=== PATIENT | male | born 1955 | race Caucasian/White ===

== ENCOUNTER 2025-09-15 13:48 | Emergency (ER) | payer MEDICARE, OTHER, SELFPAY ==
[2025-09-15 13:49] VITALS: BP 147/78; PULSE 88; RESP 18; TEMP 36.8; O2SAT 97; BMI 29.7
--- NOTE | 2025-09-15 14:28 | US_ITS ---
PROCEDURE: TESTICULAR WITH ARTERIAL FLOW 09/15/2025 REASON FOR EXAM: LEFT TESTICULAR PAIN, ERYTHEMA, SWELLING TECHNIQUE: Procedure Code: USTES Modality: US Procedure: TESTICULAR WITH ARTERIAL FLOW COMPARISON: Reviewed FINDINGS: No sonographic evidence of acute torsion bilaterally with preserved vascular flow bilaterally. Pathologically increased vascularity asymmetrically noted to the left testicle and epididymis which may reflect epididymo-orchitis. No suspicious masses seen. Moderate left hydrocele. No hydrocele or varicocele on the right. Right testicle measures 4.9 x 2.2 x 2.6 cm, left measures 4.5 x 3.6 x 3.4 cm. US/Testicular with Arterial Flow IMPRESSION: As above. Reading Location: [facility]
[2025-09-15 14:53] LABS: Hematocrit 46.1 % (40-54); Hemoglobin 15.9 g/dL (13.0-16.5); Immature Granulocytes Count 0.090 X10^3/uL (0.0-0.0); Mean Corp Hgb Conc 34.5 g/dL (32-36); Mean Corpuscular Volume 100.7 fL (80-94); Mean Platelet Vol. 10.8 fl (6.2-12.0); NRBC Flagged by Analyzer 0 % (0-5); POSITIVE DIFFERENTIAL YES; Platelet Count 174 K/mm3 (150-450); RBC Distribution Width CV 12.3 % (11.6-14.6); RBC Distribution Width SD 45.9 fl (35.1-43.9); Red Blood Count 4.58 M/mm3 (4.6-6.2); White Blood Count 15.0 K/mm3 (4.4-11.0)
[2025-09-15 14:54] LABS: Differential Indicated SCAN CRITERIA MET
[2025-09-15 15:05] LABS: Mucous, Urine 0 SEEN /hpf (<or=2+); Squamous Epithelial Cells - UA 0 SEEN /hpf (0-5)
[2025-09-15 15:06] LABS: Color, Urine Yellow (Yellow); Glucose, Dipstick Normal (Normal); Ketone-Dipstick 150 mg/dl (Negative); Leukocyte Esterase-Dipstick 500 /ul (Negative); Nitrite-Dipstick Positive (Negative); Occult Blood-Urine 150 /ul (Negative); Protein-Dipstick 30 mg/dl (Negative); Specific Gravity, Urine 1.020 (1.002-1.030); Urine Bilirubin Dipstick 1 mg/dL (Negative)
[2025-09-15 15:12] LABS: Red Blood Cells-Urine 0-5 SEEN /hpf (0-5)
--- NOTE | 2025-09-15 15:17 | EDS_ITS ---
HPI History of Present Illness Chief Complaint: Male Pain/Injury Informant: patient Pain Onset: Days (4) Timing: Continuous Appearance Lesion(s): No Genital Edema: Yes Narrative Narrative: This is a 70-year-old male who presents to the emergency department with left testicular pain and swelling. The patient states all the symptoms began on Wednesday, 4 days ago. The patient states he had his had progressive swelling and pain left testicle since then. He has normal urination without any dysuria, hematuria, or frequency. The patient has not noticed any rashes or lesions to the testicle or penis. He has no abdominal pain. No flank pain. He reports no injuries to the testicle. He has had no fevers or chills. No nausea or vomiting. No diarrhea, but he does endorse constipation. Patient is not established with a primary care physician and has not seen a physician in many years. He takes no medications daily. He does smoke tobacco daily and drink alcohol daily. Patient tried taking OTC analgesia at home without any relief of his pain. PFSH PFSH Medical History no medical history Home Medications ?Medication ?Instructions ?Recorded ?Last Taken ?Type qsyegry-ovcdcefvtnwki-kenztxgn 250 1 tab PO Q6H PRN en ergy 09/15/25 Unknown History mg-250 mg-65 mg tablet (Excedrin Extra Strength) ciprofloxacin HCl 500 mg tablet 500 mg PO BID 10 days #20 tabs 09/15/25 Unknown Rx Allergy/AdvReac Type Severity Reaction Status Date / Time amoxicillin (From Augmentin) Allergy Rash Verified 09/15/25 13:50 clavulanic acid (From Allergy Rash Verified 09/15/25 13:50 Augmentin) Social History Smoking Status: Current every day smoker tobacco type: cigarettes ROS ROS ED Constitutional Constitutional ED: Reports as per HPI; Denies chills, fever(s) or headache(s) Cardiovascular Cardiovascular: Denies chest pain or dyspnea Respiratory/Chest Respiratory/Chest: Denies dyspnea Gastrointestinal Gastrointestinal: Reports constipation and other; Denies abdominal pain, diarrhea, nausea or vomiting Genitourinary Genitourinary ED: Reports other Details: Left testicle pain and swelling ; Denies burning urination, dysuria, flank pain, hematuria or urinary frequency Musculoskeletal Musculoskeletal: Denies arthralgias, back pain or myalgias Integumentary Denies abscess or rash Psychiatric Psychiatric: Reports none Hematologic/Lymphatic Hematologic/Lymphatic: Reports none Allergic/Immunologic Allergic/Immunologic ED: Reports none EXAM Physical Exam Const Vital Signs: 09/15/25 13:49 09/15/25 15:42 09/15/25 16:32 Temperature 98.2 F 98.6 F Temperature Source Oral Oral Pulse Rate 88 72 74 Respiratory Rate 18 14 14 Blood Pressure 147/78 H 133/79 H 122/78 H Blood Pressure Mean 101 97 92 Pulse Ox 97 98 97 Oxygen Delivery Method Room Air Room Air Room Air 09/15/25 18:00 09/15/25 19:31 Temperature Temperature Source Pulse Rate 72 72 Respiratory Rate 14 Blood Pressure 130/67 H Blood Pressure Mean 88 Pulse Ox 97 Oxygen Delivery Method Room Air Positive well nourished, well developed, oriented x3 and healthy appearing General Appearance ED: active, cooperative and well developed Orientation / Consciousness: awake and oriented to person Exam Limitations: no limitations Nutritional Appearance: Negative for overweight HEENT Reports normocephalic, head/scalp atraumatic, moist mucous membranes, nasal mucous membranes and turbinates normal and oropharynx normal normocephalic, normal to inspection and atraumatic Face and Sinus: normal facial exam Nose: external nose normal and nares normal Throat: posterior oropharynx normal Eyes PERRL, EOMs intact bilaterally and conjunctivae normal General Eye ED: Yes normal appearance of both eyes Visual Acuity: acuity normal Eyelid: eyelids normal Conjunctiva: conjunctiva normal Sclera: sclera normal Cornea: cornea normal Pupil: PERRL and accommodation reflex normal EOM: EOM abnormal Neck full ROM Lymph Lymphatic: no lymphadenopathy noted Chest Wall inspection of chest normal Chest: abnormal inspection of the chest Resp normal respiratory effort and normal air movement Effort and Inspection: able to speak in complete sentences and symmetric chest movement Auscultation: clear to auscultation bilaterally Cardio regular rate and regular rhythm Rate: regular rate Peripheral Pulses: pulses 2+ throughout GI normal to inspection, nondistended, normoactive bowel sounds Rectal Exam: deferred no CVA tenderness Narrative: Asymmetric swelling to the left testicle with overlying erythema and warmth. Overlying induration of the left testicle. No necrosis, gangrenous areas, or crepitus. Reproducible pain with elevation of the left testicle. Normal- appearing circumcised penis. No rashes, lesions, or any urethral discharge. Back/Spine normal ROM and normal to inspection Cervical Spine: cervical ROM normal Extremity normal to inspection, full ROM and normal capillary refill Neuro oriented x3, CN's II-XII intact bilaterally, moves all extremities and no focal motor deficits Sensorium / Orientation: awake and alert Motor Exam: strength 5/5 throughout Psych mental status grossly normal Appearance: grossly normal and appropriate Speech: normal speech Skin no rashes or lesions noted MDM MDM Lab Data Labs: Laboratory Results - last 24 hr 09/15/25 09/15/25 14:40 15:00 WBC 15.0 H RBC 4.58 L Hgb 15.9 Hct 46.1 MCV 100.7 H MCH 34.7 H MCHC 34.5 RDW Std Deviation 45.9 H RDW Coeff of Serena 12.3 Plt Count 174 MPV 10.8 Immature Gran % (Auto) 0.600 Neut % (Auto) 79.0 H Lymph % (Auto) 8.3 L Holmes % (Auto) 11.2 H Eos % (Auto) 0.4 Baso % (Auto) 0.5 Absolute Neuts (auto) 11.9 H Absolute Lymphs (auto) 1.25 Nucleated RBC % 0 Sodium 133 Potassium 4.2 Chloride 96 L Carbon Dioxide 24.1 Anion Gap 13 BUN 11 Creatinine 0.67 L Estim Creat Clear Calc 88.45 Est GFR (MDRD) Non-Af 101 BUN/Creatinine Ratio 16.7 Glucose 97 Calcium 9.2 Total Bilirubin 0.92 AST 15 ALT 12 Alkaline Phosphatase 66 Total Protein 7.1 Albumin 3.6 Globulin 3.4 Albumin/Globulin Ratio 1.1 Urine Color Yellow Urine Clarity Sl. Cloudy Urine pH 6.0 Ur Specific [place] 1.020 Urine Protein 30 H Urine Glucose (UA) Normal Urine Ketones 150 A* Urine Occult Blood 150 H Urine Nitrite Positive H Urine Bilirubin 1 H Urine Urobilinogen 4 H Ur Leukocyte Esterase 500 H Urine RBC 0-5 SEEN Urine WBC 50-100 SEEN Ur Squamous Epith Cells 0 SEEN Urine Bacteria 1+ Urine Mucus 0 SEEN Radiography Diagnostic Testing: Clinical Impression(s) from Imaging Studies Testicular Ultrasound 09/15/25 14:28 IMPRESSION: As above. Reading Location: [facility] Abdomen/Pelvis CT 09/15/25 15:27 IMPRESSION: Left testicular hyperdensity and hydrocele with question varicocele; consider US for further evaluation. Moderately thickened urinary bladder wall which may reflect cystitis vs nondistention; consider correlation with urinalysis. Right colonic wall inflammation where colitis is considered. Colonic diverticulosis without acute diverticulitis. Reading Location: [facility] Treatment and Re-Evaluation Narrative: Patient presents with left testicular pain and swelling for the past 4 days. Differential diagnosis includes, but is not limited to, testicular torsion, epididymitis, testicular cellulitis, testicular abscess, testicular malignancy, hernia. Patient given IV fluids as well as morphine and Zofran. Review of his lab work he has a leukocytosis with a white count of 15. Patient's urinalysis consistent with infection with 50-100 white blood cells, 1+ bacteria, and leukocytes. Patient also positive for nitrates in the urine. He will be started on 1 g of Rocephin. Testicular ultrasound showed evidence of likely epididymo orchitis. CT of the abdomen pelvis also consistent with acute cystitis as reflected by his urinalysis. Patient also has right colonic wall inflammation where colitis is considered. I went back and spoke with the patient. He is much more comfortable. He has no concern for STI. I will treat him for suspected E. coli cystitis and epididymoorchitis. I will give the patient a prescription for 10-day course of ciprofloxacin. He is to complete this. I also given urology contact and follow-up. He understands he is to return if he has any new or worsening symptoms after being started on antibiotics. All questions answered. Return indications discussed. Patient discharged home from the ED. Discharge Plan Triage Chief Complaint: Male Pain/Injury ED Provider: Deja Peters Dx/Rx/DC Orders Clinical Impression: Acute epididymo-orchitis, UTI (urinary tract infection) Instructions: ED Epididymitis, ED Orchitis, ED Bladder Infection, Male (Adult) Prescriptions: New ciprofloxacin HCl 500 mg tablet 500 mg PO BID 10 Days Qty: 20 0RF No Action qzdszkf-pnpxyugknfgdh-vqjctysk [Excedrin Extra Strength] 250-250-65 mg tablet 1 tab PO Q6H PRN (Reason: energy) Primary Care Provider: Care Physician,No Primary Referrals: Meño Lobo MD [Med Staff - Active Staff, Urology] Care Physician,No Primary [Primary Care Provider, Medical] Print Language: Amharic Disposition Disposition: Home, Self Care
--- NOTE | 2025-09-15 15:27 | CT_ITS ---
PROCEDURE: ABDOMEN/PELVIS W IV CONT ONLY 09/15/2025 REASON FOR EXAM: LEFT TESTICULAR PAIN AND SWELLING TECHNIQUE: Procedure Code: [id number] Modality: CT Procedure: ABDOMEN/PELVIS W IV CONT ONLY Coronal and Sagittal reconstruction series were provided. CONTRAST: 100 mL of Isovue 370 One or more dose reduction techniques were used (e.g., Automated exposure control, adjustment of the mA and/or kV according to patient size, use of iterative reconstruction technique. RADIATION DOSE SUMMARY: DLP: 934 mGycm FINDINGS: Limited sections of the lung bases demonstrate no focal pulmonary mass or consolidations. Extensive coronary atherosclerosis. The liver, spleen, pancreas, and both adrenal glands demonstrate no acute findings. Hepatic steatosis. The gallbladder is unremarkable. The stomach is unremarkable. The small bowel loops are not dilated. The appendix is not clearly identified, although there are no secondary signs of appendicitis. No colonic obstruction. Right colonic wall inflammation where colitis is considered. Colonic diverticulosis without acute diverticulitis. There is no free air or significant free fluid. Nonobstructive stone within the right kidney. No obstructive uropathy. No hydronephrosis. Moderately thickened urinary bladder wall which may reflect cystitis vs nondistention; consider correlation with urinalysis. The pelvic structures are intact. Prostamegaly to 5.2 cm in transverse dimension. No significant lymphadenopathy. The aorta and IVC demonstrate no acute findings. Mild to moderate atherosclerosis of the abdominal vasculature. Visualized osseous structures demonstrate no acute abnormality. Left testicular hyperdensity and hydrocele with question varicocele; consider US for further evaluation. CT/Abdomen/Pelvis W IV Cont ONLY IMPRESSION: Left testicular hyperdensity and hydrocele with question varicocele; consider U S for further evaluation. Moderately thickened urinary bladder wall which may reflect cystitis vs nondist ention; consider correlation with urinalysis. Right colonic wall inflammation where colitis is considered. Colonic diverticulosis without acute diverticulitis. Reading Location: [id number]
[2025-09-15 15:42] VITALS: BP 133/79; PULSE 72; RESP 14; TEMP 37; O2SAT 98
[2025-09-15 15:48] LABS: AST(SGOT) 15 U/L (<=37); Alanine Aminotransfer ALT/SGPT 12 U/L (<=46); Albumin, Serum 3.6 g/dL (3.4-4.8); Alkaline Phosphatase 66 U/L (40-129); Anion Gap 13 (5-15); BUN 11 mg/dL (4-19); BUN/Creat Ratio 16.7 RATIO (10-20); Calcium,Total 9.2 mg/dL (7.6-11.0); Carbon Dioxide 24.1 mmol/L (21.0-32.0); Chloride 96 mmol/L (98-108); Estimated Creatinine Clearance 88.45 ml/min (50-250); Globulin 3.4 g/dL (2.2-4.2); Glucose 97 mg/dL (70-99); Potassium 4.2 mmol/L (3.3-5.1)
[2025-09-15 16:32] VITALS: BP 122/78; PULSE 74; RESP 14; O2SAT 97
--- NOTE | 2025-09-15 17:20 | ED.RN ---
RADIOLOGY CALLED FOR DELAY IN CT READ TIME.
--- NOTE | 2025-09-15 17:54 | ED.RN ---
RADIOLOGY CALLED FOR DELAY IN CT READ TIME. RESPONSE, I WILL CALL BACK WHEN IT IS IN DICTATION
[2025-09-15 18:00] VITALS: BP 130/67; PULSE 72; RESP 14; O2SAT 97
[2025-09-15 19:31] VITALS: PULSE 72
--- NOTE | 2025-09-15 19:41 | ED.RN ---
called CT to inquire about scan, reports radiologist is now reading a different pt's CT.
[2025-09-15 20:20] VITALS: BP 144/66; PULSE 80; RESP 18; TEMP 37.2; O2SAT 96
== END 2025-09-15 20:21 | disposition home or self-care (01) ==
PROVIDERS: Emergency Provider Emergency Medicine; Visit Provider Emergency Medicine
DX: N45.3 Epididymo-orchitis (principal); N39.0 Urinary tract infection, site not specified; N50.89 Other specified disorders of the male genital organs; N50.812 Left testicular pain; F17.210 Nicotine dependence, cigarettes, uncomplicated
CPT/HCPCS: 74177; 76870; 80053; 81001; 85025; 93976; 96365; 96375; 99283; Q9967; A4216; J2405